=== PATIENT | male | born 1975 | race Two or more races ===

== ENCOUNTER → 2017-09-06 | Outpatient (CLI) | payer OTHER | LOC: SBRMNEURO 21:00 | PROVIDERS: ATTEND Internal Medicine Pulmonary Disease | DX: G47.33 Obstructive sleep apnea (adult) (pediatric) (principal) ==

== ENCOUNTER 2018-01-06 19:22 | Emergency (ER) | payer OTHER ==
[2018-01-06] MEDS ORDERED: ACETAMINOPHEN 500 MG TAB PO ONE (19:29)
[2018-01-06] MEDS ORDERED: IBUPROFEN 600 MG TAB PO ONE (19:29)
[2018-01-06 19:31] VITALS: TEMP 98.1
[2018-01-06] MEDS ORDERED: IBUPROFEN 800 MG TAB PO ONE ×2 (19:31→19:32)
--- NOTE | 2018-01-06 20:02 | EDPHY ---
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 Patient was walking down steps, they were icy any slipped falling backwards, striking the steps with his back in sliding down them. He was wearing his body armor. Primary impact was to this region. - Personal History Current Tetanus/Diphtheria Vaccine: Yes Current Tetanus Diphtheria and Acellular Pertussis (TDAP): Yes - Medical/Surgical History Hx Asthma: Yes Hx Chronic Respiratory Disease: No Hx Diabetes: No Hx Cardiac Disease: No Hx Renal Disease: No Hx Cirrhosis: No Hx Alcoholism: No Hx HIV/AIDS: No Hx Splenectomy or Spleen Trauma: No - Social History Smoking Status: Never smoked - Physical Exam Exam: General Appearance: Alert, nontoxic Eyes: PERRLA ENT: No hemotympanum, no steven sign, raccoon eyes Respiratory: Lungs clear to auscultation bilaterally Cardiac: Regular rate and rhythm. Gastrointestinal: Bowel sounds normal. Abdomen is soft, nondistended, nontender. Neurological: Alert and oriented x4. Cranial nerves 2-12 grossly intact. Strength and sensation intact and symmetrical. Skin: No lesions consistent with trauma noted. Musculoskeletal: The head is nontender. The spine is nontender, no crepitus, bony deformity or step-off is appreciated. There is paraspinal muscle tenderness bilaterally at the thoracic and lumbar region. He is moving all extremities well. Ambulating without difficulty. Constitutional: Initial Vital Signs Temperature (C) 36.7 C 01/06/18 19:26 Heart Rate 83 01/06/18 19:26 Respiratory Rate 16 01/06/18 19:26 Blood Pressure 134/87 H 01/06/18 19:26 O2 Sat (%) 95 01/06/18 19:26 O2 Delivery Mode Room Air Allergies/Adverse Reactions: erythromycin base [Erythromycin Base] Allergy (Intermediate, Verified 05/17/13 08:08) morphine [Morphine] Allergy (Verified 08/29/12 08:58) Home Medications: Medication Instructions Recorded Albuterol [Proventil Inhaler (RX)] 2 puffs IH Q4 08/29/12 Cyclobenzaprine 10Mg Prepack#3 1 btl TAKEHOME EDNOW #3 btl 01/06/18 [Flexeril 10 mg Prepack#3] Cyclobenzaprine [Flexeril 10 MG 10 mg PO TID PRN #15 tab 01/06/18 (*)] Medical Decision Making - Diagnostics Imaging Results: Imaging Impressions Chest X-Ray 01/06/18 19:30 Impression: Normal chest x-ray. Lumbar Spine X-Ray 01/06/18 19:30 Impression: 1. No significant compression fracture associated with the lumbar spine. 2. Mild progression of degenerative disk disease T12-L1 and at L1-L2. Thoracic Spine X-Ray 01/06/18 19:30 Impression: Mild anterior wedge compression suspected at T12 similar to study from Feb, 2009. No acute abnormality seen about the thoracic spine. Imaging: I viewed and interpreted images myself ED Course/Re-evaluation: Patient seen under the supervision of my secondary supervising physician Dr. Mariama Lima. Patient presents to the emergency department after slipping and falling and injuring his back. He is nontoxic. Vital signs are stable. X- rays are negative. His discomfort appears to be the paraspinal muscles of the back. He is neurologically intact. He is symptomatically treated. He will be discharged home. He is asked to follow up with worker's compensation for recheck. Strict return precautions are given. The patient voiced understanding and agreement with plan. Differential Diagnosis: Included but not limited to contusion, sprain or strain, bony fracture, herniated intervertebral disc - Data Points Medications Given: Discontinued Medications Acetaminophen (Tylenol) 1,000 mg PO EDNOW ONE Stop: 01/06/18 19:30 Last Admin: 01/06/18 19:33 Dose: 1,000 mg Cyclobenzaprine HCl (Flexeril 10 Mg Prepack#3) 1 btl TAKEHOME EDNOW ONE Stop: 01/06/18 20:38 Last Admin: 01/06/18 20:42 Dose: 1 btl Ibuprofen (Motrin) 800 mg PO EDNOW ONE Stop: 01/06/18 19:33 Last Admin: 01/06/18 19:34 Dose: 800 mg Departure - Departure Disposition: Home, Routine, Self-Care Clinical Impression: Back contusion Qualifiers: Encounter type: initial encounter Laterality: unspecified laterality Qualified Code(s): S20.229A - Contusion of unspecified back wall of thorax, initial encounter Condition: Good Instructions: Cyclobenzaprine (By mouth), Contusion in Adults (ED) Additional Instructions: Follow-up with worker's compensation this week for recheck Use ibuprofen 600 mg 3 times a day for the next 2-3 days for symptom control In addition you can use Tylenol 1000 mg 3 times a day for the next 2-3 days for pain control You can use Flexeril as a muscle relaxant, please note it can be sedating Apply ice to the injured area 3 times daily for the next 3 days If symptoms worsen or new symptoms develop return to the emergency room for recheck Referrals: Miguel Khoury MD [Primary Care Provider] - As per Instructions Prescriptions: Cyclobenzaprine [Flexeril 10 MG (*)] 10 mg PO TID PRN #15 tab PRN Reason: Spasms Cyclobenzaprine 10Mg Prepack#3 [Flexeril 10 mg Prepack#3] 1 btl TAKEHOME EDNOW # 3 btl
[2018-01-06] MEDS ORDERED: CYCLOBENZAPRINE 10MG PREPACK#3 BTL TAKEHOME ONE (20:37)
[2018-01-06 20:50] VITALS: BP 137/88; PULSE 72; RESP 18; O2SAT 96
== END 2018-01-06 20:49 | disposition home or self-care (01) ==
DX: S20.229A Contusion of unspecified back wall of thorax, initial encounter (principal); J45.909 Unspecified asthma, uncomplicated; W00.0XXA Fall on same level due to ice and snow, initial encounter; Y99.1 Military activity; Y93.01 Activity, walking, marching and hiking